=== PATIENT | female | born 1940 | race Caucasian/White ===

== ENCOUNTER 2023-06-17 01:35 | Inpatient (IN) | payer MEDICARE, OTHER ==
[~2023-06-17] VITALS: Ht 160 cm; Wt 54.4 kg
[2023-06-17] MEDS ORDERED: hydrALAZINE HCL IV 20 MG VIAL ONE ×2 (02:04→03:31)
[2023-06-17] MEDS: hydrALAZINE HCL IV 20 MG VIAL IV ONE ×2 (02:05→03:37)
[2023-06-17] MEDS ORDERED: ONDANSETRON HCL/PF 4 MG/2 ML VIAL ONE ×3 (02:12→14:04)
[2023-06-17 02:17] LABS: BASOPHILS % (AUTO) 0.3 % (0.0-2.0); EOSINOPHILS % (AUTO) 0.2 % (0.0-6.0); HEMATOCRIT 38 % (33-45); HEMOGLOBIN 12.9 g/dL (11.5-14.8); LYMPHOCYTES # (AUTO) 0.9 K/uL (0.8-4.8); LYMPHOCYTES % (AUTO) 15.7 % (20.0-44.0); MEAN CORPUSCULAR HEMOGLOBIN 28 PG (26.0-33.0); MEAN CORPUSCULAR HGB CONC 34 g/dl (31.0-36.0); MEAN CORPUSCULAR VOLUME 84 fL (82-100); MONOCYTES # (AUTO) 0.3 K/uL (0.1-1.30); MONOCYTES % (AUTO) 5.3 % (2.0-12.0); NEUTROPHILS # (AUTO) 4.6 K/uL (1.8-8.9); NEUTROPHILS % (AUTO) 78.5 % (43.0-81.0); PLATELET COUNT (AUTO) 210 K/uL (150-450); RED BLOOD CELL COUNT(AUTO) 4.56 MIL/uL (4.0-5.2); RED CELL DISTRIBUTION WIDTH 14.4 % (11.5-15.0); WHITE BLOOD COUNT (AUTO) 5.9 K/uL (4.3-11.0)
[2023-06-17] MEDS: ONDANSETRON HCL/PF - ER 4 MG/2 ML VIAL IV ONE ×2 (02:20→03:57)
[2023-06-17 02:35] LABS: CARBON DIOXIDE 27 mmol/L (21-32); CHLORIDE 94 mmol/L (98-107); CREATININE 0.8 mg/dL (0.6-1.3); GLUCOSE 117 mg/dL (74-106); POTASSIUM 4.4 mmol/L (3.5-5.1); SODIUM SERUM 129 mmol/L (136-145); UREA NITROGEN, BLOOD 16 mg/dL (7-18)
[2023-06-17 02:47] LABS: ALANINE AMINOTRANSFERASE 11 U/L (12-78); ALBUMIN 3.5 g/dL (3.4-5.0); ALKALINE PHOSPHATASE 59 U/L (46-116); ASPARTATE AMINOTRANSFERASE 25 U/L (15-37); BILIRUBIN,TOTAL 0.9 mg/dL (0.2-1.0); NT-PRO BNP 1179 pg/mL (0-125); TOTAL PROTEIN, SERUM 8.3 g/dL (6.4-8.2)
[2023-06-17] MEDS: IV NS 0.9% 1,000 ML IV ONE (03:37)
[2023-06-17] MEDS ORDERED: LORAZEPAM INJ 2 MG/ML VIAL ONE (04:01)
[2023-06-17] MEDS: LORAZEPAM INJ 2 MG/ML VIAL IV ONE (04:09)
[2023-06-17] MEDS ORDERED: Z GUARD REMEDY 4 OZ OINT TP PRN (04:30)
[2023-06-17] MEDS ORDERED: ACETAMINOPHEN 325 MG TABLET PO PRN (04:30)
[2023-06-17] MEDS ORDERED: HYDROCODONE/APAP 5/325MG TABLET PO PRN (04:30)
[2023-06-17] MEDS ORDERED: MAG HYDROX/AL HYDROX/SIMETH 30 ML UDC PO PRN (04:30)
[2023-06-17] MEDS ORDERED: MAGNESIUM HYDROXIDE 30 ML UDC PO PRN (04:30)
[2023-06-17 07:30] LABS: LACTIC ACID REFLEX 1.9 mmol/L (0.4-1.9)
[2023-06-17] MEDS: PANTOPRAZOLE 40 MG TABLET.DR PO SCH (07:30)
[2023-06-17 07:31] LABS: BILIRUBIN,DIRECT 0.2 mg/dL (0.0-0.2)
[2023-06-17] MEDS ORDERED: PANTOPRAZOLE 40 MG TABLET.DR PO ONE (07:48)
[2023-06-17] MEDS ORDERED: FUROSEMIDE 40 MG/4 ML VIAL ONE (07:48)
[2023-06-17] MEDS: FUROSEMIDE 40 MG/4 ML VIAL IV SCH (08:01)
[2023-06-17] MEDS ORDERED: MECLIZINE HCL 25 MG TABLET PO PRN (11:30)
[2023-06-17] MEDS: ONDANSETRON HCL/PF 4 MG/2 ML VIAL IVP PRN (14:07)
[2023-06-17] MEDS ORDERED: LATA2.5D15 EACHEYE (14:50)
[2023-06-17] MEDS ORDERED: PROP20TA19 PO (14:50)
[2023-06-17] MEDS ORDERED: MECL-159 PO (14:50)
[2023-06-17] MEDS ORDERED: OLME1TAB92 PO (14:50)
[2023-06-17] MEDS ORDERED: ASPI-1420 PO (14:50)
[2023-06-17 16:00] VITALS: BP 150/67; TEMP 98.6; O2SAT 98
[2023-06-17 20:00] VITALS: BP 141/57; TEMP 97.7; O2SAT 99
[2023-06-17] MEDS ORDERED: TEMAZEPAM 15 MG CAPSULE PO PRN (22:00)
[2023-06-18] VITALS: BP 164/62; TEMP 97.7; O2SAT 99
[2023-06-18] MEDS: hydrALAZINE HCL IV 20 MG VIAL IV PRN (00:31)
[2023-06-18 04:00] VITALS: BP 140/62; TEMP 97.7; O2SAT 99
[2023-06-18 07:45] LABS: BASOPHILS % (AUTO) 0.2 % (0.0-2.0); EOSINOPHILS % (AUTO) 0.1 % (0.0-6.0); HEMATOCRIT 34 % (33-45); HEMOGLOBIN 11.9 g/dL (11.5-14.8); LYMPHOCYTES # (AUTO) 0.8 K/uL (0.8-4.8); LYMPHOCYTES % (AUTO) 14.5 % (20.0-44.0); MEAN CORPUSCULAR HEMOGLOBIN 28 PG (26.0-33.0); MEAN CORPUSCULAR HGB CONC 35 g/dl (31.0-36.0); MEAN CORPUSCULAR VOLUME 81 fL (82-100); MONOCYTES # (AUTO) 0.4 K/uL (0.1-1.30); MONOCYTES % (AUTO) 7.7 % (2.0-12.0); NEUTROPHILS # (AUTO) 4.4 K/uL (1.8-8.9); NEUTROPHILS % (AUTO) 77.5 % (43.0-81.0); PLATELET COUNT (AUTO) 196 K/uL (150-450); RED BLOOD CELL COUNT(AUTO) 4.19 MIL/uL (4.0-5.2); RED CELL DISTRIBUTION WIDTH 14.4 % (11.5-15.0); WHITE BLOOD COUNT (AUTO) 5.7 K/uL (4.3-11.0)
[2023-06-18 08:00] VITALS: BP 139/59; TEMP 97.8; O2SAT 98
[2023-06-18 08:21] LABS: THYROID STIMULATING HORMONE 3.864 uIU/mL (0.358-3.74)
[2023-06-18 08:23] LABS: CALCIUM, SERUM 8.4 mg/dL (8.5-10.1); CREATININE 1.2 mg/dL (0.6-1.3); PHOSPHORUS 4.7 mg/dL (2.5-4.9); POTASSIUM 3.1 mmol/L (3.5-5.1)
[2023-06-18] MEDS: POTASSIUM CHLORIDE 20 MEQ TAB.PRT.SR PO SCH (09:35)
[2023-06-18] MEDS: VALSARTAN 80 MG TABLET PO SCH (09:39)
[2023-06-18] MEDS: ASPIRIN EC 81 MG TABLET.DR PO SCH (09:39)
[2023-06-18 09:59] VITALS: BP 139/59; TEMP 97.7; O2SAT 99
[2023-06-18] MEDS: LATANOPROST EYE DROP 0.005% 2.5 ML BOTTLE EACHEYE SCH (10:09)
[2023-06-18] MEDS ORDERED: ATOR20TA PO (10:25)
[2023-06-18] MEDS ORDERED: MECL-159 PO (10:25)
[2023-06-18] MEDS ORDERED: PROPRANOLOL HCL 10 MG TABLET PO SCH (17:00)
[2023-06-19 15:07] LABS: *SPE A/G RATIO 1.1 (0.7-1.7); *SPE ALBUMIN 3.5 g/dL (2.9-4.4); *SPE ALPHA-1-GLOBULIN 0.3 g/dL (0.0-0.4); *SPE ALPHA-2-GLOBULIN 0.7 g/dL (0.4-1.0); *SPE GLOBULIN, TOTAL 3.2 g/dL (2.2-3.9); *SPE M-SPIKE Not Observed g/dL (Not Observed); *SPE PROTEIN TOTAL 6.7 g/dL (6.0-8.5); *SPEGAMMA GLOBULIN 1.2 g/dL (0.4-1.8)
== END 2023-06-18 11:22 | disposition home or self-care (01) | DRG 305 ==
LOC: ER 01:44 → TRANSITION 04:57 → TELE1 15:08 → MEDSG1 06-18 08:35
PROVIDERS: ADMIT Nurse Practitioner Acute Care; ATTEND Nurse Practitioner Acute Care
DX: I16.9 Hypertensive crisis, unspecified (principal); E87.1 Hypo-osmolality and hyponatremia; J90 Pleural effusion, not elsewhere classified; H81.10 Benign paroxysmal vertigo, unspecified ear; R94.8 Abnormal results of function studies of other organs and systems
CPT/HCPCS: 36415; 70450-TC; 71045-TC; 80048-TC; 80053-TC; 80061-TC; 82248-TC; 82962-TC; 83605-TC; 83735-TC; 83880; 84100-TC; 84155; 84165; 84443-TC; 84484-TC; 85025-TC; 87040-TC; 93307-TC; 97110-TC; 97116-TC; 97530-TC; G0378; J0360; J1940; J2060; J2405; J7030